=== PATIENT | female | born 1970 | race Hispanic/Latino ===

== ENCOUNTER 2023-08-01 07:02 | Emergency (ER) | payer SELFPAY ==
[2023-08-01] MEDS ORDERED: predniSONE 20 MG TAB ONE (07:43)
[2023-08-01] MEDS ORDERED: HYDROmorphone 0.5 MG/0.5 ML SYRINGE ONE (07:43)
== END 2023-08-01 07:54 | disposition home or self-care (01) ==
LOC: CSHERS 07:02
DX: M54.16 Radiculopathy, lumbar region (principal); I10 Essential (primary) hypertension; E11.9 Type 2 diabetes mellitus without complications
CPT/HCPCS: 96372; 99283; J1170; J7512